=== PATIENT | male | born 1960 | race Caucasian/White ===

== ENCOUNTER 2018-01-05 12:11 | Emergency (ER) | payer OTHER ==
--- NOTE | 2018-01-05 12:22 | ER Report ---
History and Physical Time Seen By MD: 12:22 Hx. of Stated Complaint: DIZZY SINCE LAST NIGHT, NO TRAUMA HPI/ROS CHIEF COMPLAINT: Dizziness HISTORY OF PRESENT ILLNESS: 57-year-old male patient presents to emergency room with complaint of dizziness. Patient states this started yesterday morning when he woke up. States he sat up and became very lightheaded at that time. States he is able to get up and go to work without any difficulties. States when he laid down last night the dizziness returned. Patient does feel as if he is spending as opposed to emergency room. Patient denies any nausea, vomiting or diarrhea. Patient states he feels better when he is sitting still without moving his head. Patient states he is not taking any medication for this. He denies any trauma or injury. Patient states he had similar episode approximately 30 years ago and was diagnosed with strep and sinuses. He was placed on antibiotics and resolved without any difficulties. REVIEW OF SYSTEMS: Respiratory: No cough, no dyspnea. Cardiovascular: No chest pain, no palpitations. Gastrointestinal: No vomiting, no abdominal pain. Musculoskeletal: No back pain. Allergies: Coded Allergies: No Known Drug Allergies (Unverified , 01/05/18) Home Meds Active Scripts Scopolamine (Scopolamine) 1 Mg/3 Day Patch.td.3, 1 PATCH.72H TD Q3D Y for DIZZINESS, #3 PATCH.72H Prov:SIMONE HOFFMAN 01/05/18 Meclizine Hcl (MECLIZINE HCL) 25 Mg Tablet, 25 MG PO TID Y for DIZZINESS, #30 TAB Prov:SIMONE HOFFMAN 01/05/18 Diazepam (VALIUM) 5 Mg Tablet, 5 MG PO TID Y for DIZZINESS, #15 TAB Prov:SIMONE HOFFMAN 01/05/18 Past Medical/Surgical History Patient has a past medical history of alcohol use. Patient has surgical history of umbilical hernia, appendectomy, right elbow surgery, discectomy. Reviewed Nurses Notes: Yes Smoking Status: Never Smoker Constitutional Vital Sign - Last 24 Hours 01/05/18 01/05/18 01/05/18 01/05/18 12:17 12:17 12:30 12:41 Temp 97.0 Pulse 56 54 Resp 20 B/P (MAP) 136/87 (103) 136/87 129/87 (101) Pulse Ox 94 94 O2 Delivery Room Air 01/05/18 01/05/18 01/05/18 01/05/18 13:00 13:11 13:30 13:46 Pulse 60 Resp 7 B/P (MAP) 123/80 (94) 122/68 (86) Pulse Ox 94 90 01/05/18 01/05/18 01/05/18 01/05/18 14:00 14:16 14:30 14:35 Pulse 58 59 Resp 0 6 B/P (MAP) 124/88 (100) 123/82 (96) Pulse Ox 97 95 01/05/18 01/05/18 01/05/18 01/05/18 15:00 15:05 15:30 15:35 Pulse 57 65 Resp 18 18 B/P (MAP) 118/93 (101) 119/85 (96) Pulse Ox 95 92 01/05/18 15:37 Pulse 58 Intake and Output 01/05/18 01/05/18 01/06/18 14:59 22:59 06:59 Intake Total 1000 ml Balance 1000 ml Physical Exam General Appearance: The patient is alert, has no immediate need for airway protection and no current signs of toxicity. ENT: Tympanic membranes are pearly-soni, auditory canals are patent, mixed mucous membranes are moist. Patient had a negative Treece-Hallpike maneuver. Respiratory: Chest is non tender, lungs are clear to auscultation. Cardiac: regular rate and rhythm Gastrointestinal: Abdomen is soft and non tender, no masses, bowel sounds normal. Musculoskeletal: Neck: Neck is supple and non tender. Extremities have full range of motion and are non tender. Skin: No rashes or lesions. DIFFERENTIAL DIAGNOSIS: After history and physical exam differential diagnosis was considered for dizziness including but not limited to peripheral and central causes of vertigo, orthostatic causes including dehydration, and blood loss. Medical Decision Making Data Points Result Diagram: 01/05/18 1235 01/05/18 1235 Laboratory Hematology Test 01/05/18 12:35 01/05/18 12:42 Red Blood Count 5.66 M/uL (4.00-5.60) Mean Corpuscular Volume 91.0 fL (80.0-96.0) Mean Corpuscular Hemoglobin 31.9 pg (26.0-33.0) Mean Corpuscular Hemoglobin Concent 35.1 g/dL (32.0-36.0) Red Cell Distribution Width 13.2 % (11.5-14.5) Mean Platelet Volume 8.2 fL (7.2-11.1) Neutrophils (%) (Auto) 74.8 % (39.4-72.5) Lymphocytes (%) (Auto) 17.5 % (17.6-49.6) Monocytes (%) (Auto) 5.5 % (4.1-12.4) Eosinophils (%) (Auto) 1.3 % (0.4-6.7) Basophils (%) (Auto) 0.9 % (0.3-1.4) Nucleated RBC Relative Count (auto) 0.1 /100WBC Neutrophils # (Auto) 4.6 K/uL (2.0-7.4) Lymphocytes # (Auto) 1.1 K/uL (1.3-3.6) Monocytes # (Auto) 0.3 K/uL (0.3-1.0) Eosinophils # (Auto) 0.1 K/uL (0.0-0.5) Basophils # (Auto) 0.1 K/uL (0.0-0.1) Nucleated RBC Absolute Count (auto) 0.01 K/uL Sodium Level 140 mmol/L (137-145) Potassium Level 3.9 mmol/L (3.5-5.0) Chloride Level 106 mmol/L (98-107) Carbon Dioxide Level 22 mmol/L (22-30) Blood Urea Nitrogen 13 mg/dl (9-21) Creatinine 1.10 mg/dl (0.66-1.25) Glomerular Filtration Rate Calc > 60.0 Random Glucose 124 mg/dl (75-110) Calcium Level 9.3 mg/dl (8.4-10.2) Total Bilirubin 1.1 mg/dl (0.2-1.3) Aspartate Amino Transf (AST/SGOT) 26 U/L (0-35) Alanine Aminotransferase (ALT/SGPT) 37 U/L (0-56) Alkaline Phosphatase 93 U/L (0-126) Troponin I < 0.012 ng/ml Total Protein 7.1 gm/dl (6.3-8.2) Albumin 4.1 g/dl (3.5-5.0) Group A Streptococcus Screen Negative (NEGATIVE) Chemistry Test 01/05/18 12:35 5/12/18 12:42 White Blood Count 6.2 k/uL (4.5-11.0) Red Blood Count 5.66 M/uL (4.00-5.60) Hemoglobin 18.1 g/dL (14.0-18.0) Hematocrit 51.5 % (42.0-52.0) Mean Corpuscular Volume 91.0 fL (80.0-96.0) Mean Corpuscular Hemoglobin 31.9 pg (26.0-33.0) Mean Corpuscular Hemoglobin Concent 35.1 g/dL (32.0-36.0) Red Cell Distribution Width 13.2 % (11.5-14.5) Platelet Count 316 K/uL (150-450) Mean Platelet Volume 8.2 fL (7.2-11.1) Neutrophils (%) (Auto) 74.8 % (39.4-72.5) Lymphocytes (%) (Auto) 17.5 % (17.6-49.6) Monocytes (%) (Auto) 5.5 % (4.1-12.4) Eosinophils (%) (Auto) 1.3 % (0.4-6.7) Basophils (%) (Auto) 0.9 % (0.3-1.4) Nucleated RBC Relative Count (auto) 0.1 /100WBC Neutrophils # (Auto) 4.6 K/uL (2.0-7.4) Lymphocytes # (Auto) 1.1 K/uL (1.3-3.6) Monocytes # (Auto) 0.3 K/uL (0.3-1.0) Eosinophils # (Auto) 0.1 K/uL (0.0-0.5) Basophils # (Auto) 0.1 K/uL (0.0-0.1) Nucleated RBC Absolute Count (auto) 0.01 K/uL Glomerular Filtration Rate Calc > 60.0 Calcium Level 9.3 mg/dl (8.4-10.2) Total Bilirubin 1.1 mg/dl (0.2-1.3) Aspartate Amino Transf (AST/SGOT) 26 U/L (0-35) Alanine Aminotransferase (ALT/SGPT) 37 U/L (0-56) Alkaline Phosphatase 93 U/L (0-126) Troponin I < 0.012 ng/ml Total Protein 7.1 gm/dl (6.3-8.2) Albumin 4.1 g/dl (3.5-5.0) Group A Streptococcus Screen Negative (NEGATIVE) EKG/Imaging EKG Interpretation 12 lead EKG: Rhythm: Sinus bradycardia with ventricular rate 51 bpm [place]: normal QRS: normal ST segments: normal Imaging CHEST PA AND LAT Additional pertinent History: None COMPARISON STUDIES: none FINDINGS: Support lines and catheters: Lungs and Pleura: Lung steele well expanded with no infiltrates or consolidations. No parenchymal mass lesions are seen. There are no effusions Heart and vasculature: Negative. Jennyfer and Mediastinum: Negative. Bones and Chest wall: Negative. Upper Abdomen: Negative. IMPRESSION: 1. Negative chest Report Dictated By: Sumit Multani MD at 01/05/2018 1:39 PM Report E-Signed By: Sumit Multani MD at 01/05/2018 1:40 PM HEAD W/O CONTRAST EXAMINATION: CT head/brain without contrast HISTORY: Dizziness TECHNIQUE: Contiguous axial images were obtained from the skull base to the vertex without intravenous contrast. One of the following dose optimization techniques was utilized in the performance of this exam: Automated exposure control; adjustment of the mA and/ or kV according to the patient's size; or use of an iterative reconstruction technique. Specific details can be referenced in the facility's radiology CT exam operational policy. COMPARISON STUDIES: None FINDINGS: Ventricles/sulci/fissures: Negative Masses/hemorrhage/midline shift: Negative White matter: Negative Soni-white differentiation: Negative Extra-axial spaces: Negative Dural venous sinuses/arterial structures: Negative Skull base/calvarium: Negative Visualized mastoid air cells/paranasal sinuses: Negative IMPRESSION: Negative CT scan of the head for acute intracranial pathology. Report Dictated By: Sumit Multani MD at 01/05/2018 1:37 PM Report E-Signed By: Sumit Multani MD at 01/05/2018 1:39 PM ED Course/Re-evaluation ED Course Patient was admitted exam room, history and physical were obtained. Differential diagnoses were considered. On examination lungs are clear, heart regular, abdomen soft nontender. Patient did have a negative [place]-Hallpike maneuver. An IV was started, patient received a liter of normal saline. A CBC, CMP, CT scan of the head was done, EKG, troponin, chest x-ray were done. The labs were unremarkable, troponin was negative, CT scan of the head and chest x- ray were negative as well. Patient had a scopolamine patch placed on him, he also received meclizine. On reexamination patient states he's not feeling any better. Patient was then given 5 mg of Valium. On reevaluation at that time patient states he did have some improvement. We will go ahead and discharge patient home. Even with a negative Treece-Hallpike maneuver I do believe this is likely a paroxysmal benign positional vertigo. I think is most consistent with patient having worsening symptoms with moving his head. I discussed this patient is and they verbalized understanding and agreement. I will have him follow-up with his primary care provider next week. Patient verbalized understanding and agreement with plan. Decision to Disposition Date: January 05, 2018 Decision to Disposition Time: 15:25 Depart Departure Latest Vital Signs Vital Signs Date Time Temp Pulse Resp B/P (MAP) Pulse Ox O2 Delivery O2 Flow Rate FiO2 01/05/18 15:37 58 01/05/18 15:35 18 92 01/05/18 15:30 119/85 (96) 01/05/18 12:17 97.0 Room Air Impression: Primary Impression: Vertigo Condition: Improved Disposition: HOME OR SELF-CARE New Scripts Scopolamine (Scopolamine) 1 Mg/3 Day Patch.td.3 1 PATCH.72H TD Q3D Y for DIZZINESS, #3 PATCH.72H Prov: SIMONE HOFFMAN 01/05/18 Meclizine Hcl (MECLIZINE HCL) 25 Mg Tablet 25 MG PO TID Y for DIZZINESS, #30 TAB Prov: SIMONE HOFFMAN 01/05/18 Diazepam (VALIUM) 5 Mg Tablet 5 MG PO TID Y for DIZZINESS, #15 TAB Prov: SIMONE HOFFMAN 01/05/18 Patient Instructions: Vertigo (ED) Additional Instructions: Increase fluid intake. Get plenty of rest. Follow up with your primary care provider in the next week. Take the medication as prescribed. Return to the ER if condition worsens. I anticipate that this will improve over the next 3-5 days. SIMONE HOFFMAN January 05, 2018 12:22
[2018-01-05] MEDS ORDERED: NS(*) 0.9% 1000 ML BAG 1,000 ML IV ONE (12:43)
--- NOTE | 2018-01-05 12:54 | EKG ---
FACILITY: [facility] PATIENT NAME: ANNA CRESPO : [id number] MR: [id number] V: [id number] EXAM DATE: ORDERING PHYSICIAN: SIMONE HOFFMAN TECHNOLOGIST: TIA Whiteside Reason : DIZZY Blood Pressure : / mmHG Vent. Rate : 051 BPM Atrial Rate : 051 BPM P-R Int : 180 ms QRS Dur : 102 ms QT Int : 448 ms P-R-T Axes : 016 -08 007 degrees QTc Int : 412 ms Sinus bradycardia Left axis Decreased R wave progerssion anteriorly Abnormal ECG No previous ECGs available Confirmed by KENAN ANDERSON ([id number]) on 01/07/2018 11:06:52 AM Referred By: YASMIN Confirmed By:KENAN ANDERSON
[2018-01-05 12:57] LABS: PLATELET COUNT, AUTOMATED 316 K/uL (150-450)
--- NOTE | 2018-01-05 13:43 | RADIOLOGY IMAGING REPORT ---
FACILITY: [facility] [place] PATIENT NAME: Jimy Matthews : 1960 MR: [id number] V: [id number] EXAM DATE: ORDERING PHYSICIAN: SIMONE HOFFMAN TECHNOLOGIST: Location: [facility] [place] Patient: Jimy Matthews : 1960 Visit/Account:[id number] Date of Sevice: 01/05/2018 HEAD W/O CONTRAST EXAMINATION: CT head/brain without contrast HISTORY: Dizziness TECHNIQUE: Contiguous axial images were obtained from the skull base to the vertex without intravenou s contrast. One of the following dose optimization techniques was utilized in the performance of this exam: Autom ated exposure control; adjustment of the mA and/or kV according to the patient's size; or use of an i terative reconstruction technique. Specific details can be referenced in the facility's radiology C T exam operational policy. COMPARISON STUDIES: None FINDINGS: Ventricles/sulci/fissures: Negative Masses/hemorrhage/midline shift: Negative White matter: Negative Soni-white differentiation: Negative Extra-axial spaces: Negative Dural venous sinuses/arterial structures: Negative Skull base/calvarium: Negative Visualized mastoid air cells/paranasal sinuses: Negative IMPRESSION: Negative CT scan of the head for acute intracranial pathology. Report Dictated By: Sumit Multani MD at 01/05/2018 1:37 PM Report E-Signed By: Sumit Multani MD at 01/05/2018 1:39 PM WSN:[id number]
--- NOTE | 2018-01-05 13:44 | RADIOLOGY IMAGING REPORT ---
FACILITY: [facility] PATIENT NAME: Jimy Matthews : 1960 MR: [id number] V: [id number] EXAM DATE: ORDERING PHYSICIAN: SIMONE HOFFMAN TECHNOLOGIST: Location: [facility] Patient: Jimy Matthews : 1960 Visit/Account:[id number] Date of Sevice: 01/05/2018 CHEST PA AND LAT Additional pertinent History: None COMPARISON STUDIES: none FINDINGS: Support lines and catheters: Lungs and Pleura: Lung steele well expanded with no infiltrates or consolidations. No parenchymal ma ss lesions are seen. There are no effusions Heart and vasculature: Negative. Jennyfer and Mediastinum: Negative. Bones and Chest wall: Negative. Upper Abdomen: Negative. IMPRESSION: 1. Negative chest Report Dictated By: Sumit Multani MD at 01/05/2018 1:39 PM Report E-Signed By: Sumit Multani MD at 01/05/2018 1:40 PM WSN:[id number]
[2018-01-05] MEDS ORDERED: SCOPOLAMINE 1.5 MG PATCH TD ONE (13:45)
[2018-01-05] MEDS ORDERED: MECLIZINE HCL 25 MG TAB PO ONE (13:45)
[2018-01-05] MEDS ORDERED: DIAZEPAM 5 MG TAB PO ONE (14:30)
[2018-01-05] MEDS ORDERED: SCOP1PAT16 TD (15:23)
[2018-01-05] MEDS ORDERED: MECL25TA9 PO (15:23)
[2018-01-05] MEDS ORDERED: DIA5 PO (15:23)
[2018-01-05 15:30] VITALS: BP 119/85
== END 2018-01-05 15:39 | disposition home or self-care (01) ==
LOC: ER 12:14
DX: R42 Dizziness and giddiness (principal)
CPT/HCPCS: 70450; 71046; 84484; 85025; 87081; 87880; 93005; 96360; 96361; 99284; J7030; J8597; 82040; 82247; 82310; 82374; 82435; 82565; 82947; 84075; 84132; 84155; 84295; 84450; 84460; 84520